=== PATIENT | female | born 1990 | race Two or more races ===

== ENCOUNTER 2019-05-23 15:02 | Outpatient (CLI) | payer OTHER | END 2019-05-23 15:09 | disposition home or self-care (01) | LOC: SONOGRAMA 15:02 | DX: R10.2 Pelvic and perineal pain (principal) ==

== ENCOUNTER 2019-09-01 09:58 | Outpatient (CLI) | payer OTHER | END 2019-09-01 10:06 | disposition home or self-care (01) | LOC: SONOGRAMA 09:58 → MAMO-SONO 09-02 09:45 | DX: R10.2 Pelvic and perineal pain (principal) ==

== ENCOUNTER 2019-10-12 11:00 | Outpatient (CLI) | payer OTHER | END 2019-10-12 11:05 | disposition home or self-care (01) | LOC: SONOGRAMA 11:00 | DX: N84.1 Polyp of cervix uteri (principal); N93.9 Abnormal uterine and vaginal bleeding, unspecified ==

== ENCOUNTER 2025-03-07 07:45 | Outpatient (CLI) | payer OTHER | END 2025-03-07 07:55 | disposition home or self-care (01) | LOC: SONOGRAMA 07:45 | PROVIDERS: ATTEND Obstetrics & Gynecology Maternal & Fetal Medicine | DX: R10.9 Unspecified abdominal pain (principal) ==

== ENCOUNTER 2025-04-17 14:06 | Outpatient (CLI) | payer OTHER | END 2025-04-17 15:36 | disposition home or self-care (01) | LOC: NST 14:06 | PROVIDERS: ATTEND Obstetrics & Gynecology Maternal & Fetal Medicine | DX: Z34.82 Encounter for supervision of other normal pregnancy, second trimester (principal) ==

== ENCOUNTER 2025-05-02 10:15 | Outpatient (CLI) | payer OTHER | END 2025-05-02 11:33 | disposition home or self-care (01) | LOC: NST 10:15 | PROVIDERS: ATTEND Obstetrics & Gynecology Maternal & Fetal Medicine | DX: Z34.83 Encounter for supervision of other normal pregnancy, third trimester (principal) ==

== ENCOUNTER 2025-05-16 08:21 | Outpatient (CLI) | payer OTHER | END 2025-05-16 09:17 | disposition home or self-care (01) | LOC: NST 08:21 | PROVIDERS: ATTEND Obstetrics & Gynecology Maternal & Fetal Medicine | DX: Z34.83 Encounter for supervision of other normal pregnancy, third trimester (principal) ==

== ENCOUNTER 2025-05-28 08:11 | Outpatient (CLI) | payer OTHER | END 2025-05-28 09:31 | disposition home or self-care (01) | LOC: NST 08:11 | PROVIDERS: ATTEND Obstetrics & Gynecology Maternal & Fetal Medicine | DX: Z34.83 Encounter for supervision of other normal pregnancy, third trimester (principal) ==

== ENCOUNTER 2025-06-12 12:23 | Outpatient (CLI) | payer OTHER | END 2025-06-12 13:04 | disposition home or self-care (01) | LOC: NST 12:23 | PROVIDERS: ATTEND Obstetrics & Gynecology Maternal & Fetal Medicine | DX: Z34.83 Encounter for supervision of other normal pregnancy, third trimester (principal) ==

== ENCOUNTER 2025-06-26 10:06 | Outpatient (CLI) | payer OTHER | END 2025-06-26 13:56 | disposition home or self-care (01) | LOC: NST 10:06 | PROVIDERS: ATTEND Obstetrics & Gynecology Gynecology | DX: Z34.83 Encounter for supervision of other normal pregnancy, third trimester (principal) ==

== ENCOUNTER 2025-07-04 13:30 | Inpatient (IN) | payer OTHER ==
[~2025-07-04] VITALS: Ht 167.6 cm; Wt 3.6 kg
[2025-07-05 11:30] VITALS: BP 130/88
[2025-07-05] MEDS ORDERED: OXYTOCIN 500 ML IV ONE (12:00)
[2025-07-05] MEDS ORDERED: RINGERS SOLUTION,LACTATED 1,000 ML IV SCH ×2 (12:45→17:30)
[2025-07-05 12:53] LABS: BASO % 0.8 % (0.1-1.2); EOS # 0.22 (0.04-0.54); EOS % 2.6 % (0.7-7.0); LYMPH # 2.45 (1.18-3.74); LYMPH % 29.5 % (19.3-53.1); MEAN PLATELET VOLUME 12.50 fl (9.4-12.4); MONO # 0.65 (0.24-0.82); MONO % 7.8 % (4.7-12.5); NEUT # 4.90 (1.56-6.13); NEUT % 59.1 % (34.0-71.1); RED CELL DISTRIBUTION WIDTH 14.0 % (11.6-14.4)
[2025-07-05] MEDS ORDERED: PRILOSEC OTC20 MG PO (13:03)
[2025-07-05] MEDS ORDERED: PRENATABS RX T1 EACH PO (13:03)
[2025-07-05 13:13] LABS: INR < 0.93
[2025-07-05] MEDS ORDERED: MORPHINE SULFATE 4 MG/ML CARTRIDGE IV ONE ×2 (13:30→16:15)
[2025-07-05 13:31] LABS: ALT/SGPT 14.0 U/L (12-78); AST/SGOT 22.0 U/L (15-37); BILIRUBIN TOTAL 0.38 mg/dL (0.3-1.2); BUN CREA RATIO 10.0 (7.0-25.0); CREATININE SERUM 1.09 mg/dL (0.55-1.02); GFR 57.12; GLOBULINA 4.3 G/DL (2.4-3.5); GLUCOSE FASTING 81.0 mg/dL (65-100); OSMOLALITY SERUM 280.0 MOSM/KG (275-295)
[2025-07-05] MEDS ORDERED: ERYTHROMYCIN BASE OPHT 1GM EACH TUBE OP ONE ×2 (15:05→17:43)
[2025-07-05] MEDS ORDERED: OXYTOCIN 20 UNITS/1000ML RL PIGGYBAG IV ONE (15:05)
[2025-07-05] MEDS ORDERED: CHLORHEXIDINE GLUCONATE 120 ML BOTTLE TOP ONE (15:05)
[2025-07-05] MEDS ORDERED: LIDOCAINE HCL 1% 10ML VIAL ONE (15:06)
[2025-07-05 15:26] VITALS: BP 140/90
[2025-07-05] MEDS ORDERED: MORPHINE SULFATE 4 MG/ML CARTRIDGE IV PRN (17:30)
[2025-07-05] MEDS ORDERED: OXYTOCIN 1,000 ML IV ONE (17:30)
[2025-07-05] MEDS ORDERED: OXYTOCIN 10 UNITS/ML VIAL ONE ×2 (17:42→21:26)
[2025-07-05] MEDS ORDERED: CEFAZOLIN SODIUM 1,000 MG VIAL ONE (17:43)
[2025-07-05] MEDS ORDERED: KETOROLAC TROMETHAMINE 30 MG VIAL IV SCH (18:00)
[2025-07-05] MEDS ORDERED: ONDANSETRON HCL 2 MG/ML VIAL IV SCH (18:00)
[2025-07-05] MEDS ORDERED: ACETAMINOPHEN 500 MG GEL..CAP PO SCH (18:00)
[2025-07-05] MEDS ORDERED: KETOROLAC TROMETHAMINE 30 MG VIAL ONE (20:37)
[2025-07-05 22:36] VITALS: BP 126/81
[2025-07-06] VITALS: BP 110/71
[2025-07-06] MEDS ORDERED: SIMETHICONE 125 MG CAPSULE PO SCH (01:00)
[2025-07-06] MEDS ORDERED: GABAPENTIN 300 MG CAPSULE PO SCH (01:00)
[2025-07-06 07:06] LABS: BASO % 0.2 % (0.1-1.2); EOS # 0.05 (0.04-0.54); EOS % 0.3 % (0.7-7.0); LYMPH # 2.98 (1.18-3.74); LYMPH % 17.4 % (19.3-53.1); MEAN PLATELET VOLUME 12.10 fl (9.4-12.4); MONO # 1.01 (0.24-0.82); MONO % 5.9 % (4.7-12.5); NEUT # 13.04 (1.56-6.13); NEUT % 76.0 % (34.0-71.1); RED CELL DISTRIBUTION WIDTH 13.9 % (11.6-14.4)
[2025-07-06] MEDS ORDERED: KETOROLAC TROMETHAMINE 10 MG TABLET PO SCH (08:00)
[2025-07-06] MEDS ORDERED: OxyCODONE HCL 5 MG TABLET (ROXICODONE) PO PRN (08:00)
[2025-07-06] MEDS ORDERED: DOCUSATE SODIUM 100MG CAP PO SCH (09:00)
[2025-07-06 09:44] VITALS: BP 115/74
[2025-07-06 13:02] VITALS: BP 101/68
[2025-07-06 16:52] VITALS: BP 129/82
[2025-07-07 01:24] VITALS: BP 117/83
[2025-07-07 08:50] VITALS: BP 114/71
[2025-07-07] MEDS ORDERED: SOD FERRIC GLUC COMPLX/SUCROSE 125 MG in 0.9 % SODIUM CHLORIDE 100 ML IV SCH (12:00)
[2025-07-07 13:34] VITALS: BP 110/70
[2025-07-07 19:50] LABS: BASO % 0.6 % (0.1-1.2); EOS # 0.45 (0.04-0.54); EOS % 2.3 % (0.7-7.0); LYMPH # 3.45 (1.18-3.74); LYMPH % 17.8 % (19.3-53.1); MEAN PLATELET VOLUME 11.20 fl (9.4-12.4); MONO # 1.05 (0.24-0.82); MONO % 5.4 % (4.7-12.5); NEUT # 14.22 (1.56-6.13); NEUT % 73.4 % (34.0-71.1); RED CELL DISTRIBUTION WIDTH 15.0 % (11.6-14.4)
[2025-07-07 20:23] VITALS: BP 121/70
[2025-07-07 20:24] LABS: INR < 0.93
[2025-07-08] VITALS: BP 103/62
[2025-07-08 08:00] VITALS: BP 126/73
== END 2025-07-08 12:13 | disposition home or self-care (01) | DRG 788 ==
LOC: LDR 07-05 11:53 → O/R 07-05 18:27 → OB/GYN 07-05 19:02
PROVIDERS: Obstetrics & Gynecology; ADMIT Obstetrics & Gynecology; ATTEND Obstetrics & Gynecology
PROC: 4A1HXCZ Monitoring of Products of Conception, Cardiac Rate, External Approach (ICD-10-PCS; 2025-07-05)
PROC: 10D00Z1 Extraction of Products of Conception, Low, Open Approach (ICD-10-PCS; principal; 2025-07-05 17:00)
DX: O82 Encounter for cesarean delivery without indication (principal); O62.1 Secondary uterine inertia; Z3A.38 38 weeks gestation of pregnancy; Z37.0 Single live birth